=== PATIENT | male | born 1970 | race Caucasian/White ===

== ENCOUNTER → 2020-02-03 | Outpatient (CLI) | payer BC | END | disposition home or self-care (01) | LOC: CVU 08:11 | PROVIDERS: ATTEND Nurse Practitioner Family | DX: R00.2 Palpitations (principal) | CPT/HCPCS: 93306 ==

== ENCOUNTER 2020-03-04 06:03 | Observation (INO) | payer BC ==
[~2020-03-04] VITALS: Ht 177.8 cm; Wt 97.7 kg
[2020-03-04 06:53] VITALS: BP 130/73
[2020-03-04] MEDS ORDERED: SODIUM CHLORIDE 0.9% 1,000 ML IV SCH ×2 (07:00)
[2020-03-04 07:10] VITALS: BP 128/82
[2020-03-04] MEDS ORDERED: NO MEDICATIONS (07:17)
[2020-03-04] MEDS ORDERED: PROPOFOL 10 MG/ML, 20ML ONE (08:09)
[2020-03-04] MEDS ORDERED: EPHEDRINE 50 MG/ML, 1ML ONE (08:09)
[2020-03-04] MEDS ORDERED: FENTANYL PF 250 MCG/5ML ONE (08:09)
[2020-03-04] MEDS ORDERED: SUCCINYLCHOLINE 20 MG/ML, 10ML ONE (08:09)
[2020-03-04] MEDS ORDERED: MIDAZOLAM 1 MG/ML, 2ML ONE (08:09)
[2020-03-04] MEDS ORDERED: ROCURONIUM 10MG/ML,5ML ONE (08:10)
[2020-03-04] MEDS ORDERED: LIDOCAINE 1%, 20ML ONE (08:31)
[2020-03-04] MEDS ORDERED: HEPARIN 1,000 UNITS/ML, 10ML ONE ×2 (09:42)
[2020-03-04] MEDS ORDERED: DEXAMETHASONE 4 MG/ML, 1ML ONE ×2 (09:42)
[2020-03-04] MEDS ORDERED: FENTANYL PF 100 MCG/2ML ONE ×2 (11:01→12:18)
[2020-03-04] MEDS ORDERED: APIXABAN 5 MG TABLET ONE (12:18)
[2020-03-04] MEDS ORDERED: MEPERIDINE/PF 25MG/ML,1ML ONE (12:18)
[2020-03-04] MEDS ORDERED: PROMETHAZINE 25 MG/ML, 1ML ONE (12:27)
[2020-03-04] MEDS ORDERED: HYDROmorphone 1 MG/ML, 1ML INJ IVPush PRN (12:30)
[2020-03-04] MEDS ORDERED: OXYcodone 5 MG/5 ML ORAL.SOL UDC PO PRN (12:30)
[2020-03-04] MEDS ORDERED: PROMETHAZINE 25 MG/ML, 1ML IVPush PRN (12:30)
[2020-03-04] MEDS ORDERED: ACETAMINOPHEN 325 MG TABLET PO PRN ×2 (12:30→13:00)
[2020-03-04] MEDS ORDERED: ALBUTEROL SULFATE 2.5 MG/3 ML NPPB PRN (12:30)
[2020-03-04] MEDS ORDERED: MEPERIDINE/PF 25MG/0.5ML IVPush PRN (12:30)
[2020-03-04] MEDS ORDERED: hydrALAzine 20 MG/ML, 1ML IV PRN (12:30)
[2020-03-04] MEDS ORDERED: DIPHENHYDRAMINE 50 MG/ML, 1ML IVPush PRN ×2 (12:30)
[2020-03-04] MEDS ORDERED: PROMETHAZINE 12.5 MG SUPP PR PRN (12:30)
[2020-03-04] MEDS ORDERED: LABETALOL 5MG/ML, 20ML IV PRN (12:30)
[2020-03-04] MEDS ORDERED: EPHEDRINE 50 MG/ML, 1ML IVPush PRN (12:30)
[2020-03-04] MEDS ORDERED: DIAZEPAM 5 MG/ML, 2ML IVPush PRN (12:30)
[2020-03-04] MEDS ORDERED: ONDANSETRON 2MG/ML, 2ML IVPush PRN (12:30)
[2020-03-04] MEDS ORDERED: MIDAZOLAM 1 MG/ML, 2ML IV PRN (12:30)
[2020-03-04] MEDS: FENTANYL PF 100 MCG/2ML IV PRN ×2 (12:36→12:45)
[2020-03-04] MEDS: APIXABAN 5 MG TABLET PO SCH ×2 (13:12→21:27)
[2020-03-04] MEDS ORDERED: APIXABAN 5 MG TABLET PO ONE (13:30)
[2020-03-04] MEDS ORDERED: HYDROmorphone 1 MG/ML, 1ML INJ ONE (13:49)
[2020-03-04] MEDS ORDERED: TAMSULOSIN 0.4 MG CAP.ER.24H PO ONE (16:00)
[2020-03-04 16:57] VITALS: BP 127/81
[2020-03-04 19:19] VITALS: BP 121/84
[2020-03-04] MEDS: COLCHICINE 0.6 MG CAPSULE PO SCH (21:27)
[2020-03-05 00:58] VITALS: BP 121/81
[2020-03-05] MEDS ORDERED: NITROGLYCERIN 0.4 MG BOTTLE (25 TABS) SL PRN (05:30)
[2020-03-05] MEDS ORDERED: NITROGLYCERIN 0.4 MG/SPRAY SL PRN (05:30)
[2020-03-05 06:42] VITALS: BP 126/82
[2020-03-05] MEDS: APIXABAN 5 MG TABLET PO SCH (08:05)
[2020-03-05] MEDS: COLCHICINE 0.6 MG CAPSULE PO SCH (08:05)
[2020-03-05] MEDS ORDERED: APIX5TAB PO (08:08)
[2020-03-05] MEDS ORDERED: COLC0.6C3 PO (08:08)
== END 2020-03-05 11:06 | disposition home or self-care (01) ==
LOC: CACL 06:03 → ORIP 12:48 → 5SO 13:54 → DCLOUNGE 03-05 10:55
PROVIDERS: ADMIT Internal Medicine Cardiovascular Disease; ATTEND Internal Medicine Cardiovascular Disease
DX: I48.0 Paroxysmal atrial fibrillation (principal); R00.2 Palpitations; F12.10 Cannabis abuse, uncomplicated; Z79.899 Other long term (current) drug therapy
CPT/HCPCS: 85347; 93005; 93308; 93312; 93321; 93325; 93613; 93656; 93662; C1730; C1732; C1759; C1766; C1893; C1894; G0378; J0330; J1100; J1170; J1644; J2175; J2250; J2550; J2704; J3010; J3490